=== PATIENT | female | born 1980 | race Caucasian/White ===

== ENCOUNTER 2017-07-01 07:35 | Emergency (ER) | payer BC, MEDICAID ==
[2017-07-01] MEDS: FAMOTIDINE 20 MG INJ IV (08:29)
[2017-07-01] MEDS: morphine 4 MG/ML VIAL IV (08:29)
[2017-07-01] MEDS: ONDANSETRON 4 MG INJ IV (08:29)
[2017-07-01 08:54] LABS: ADD MAN DIFF? NO
[2017-07-01 08:56] LABS: ABNORMAL IP MESSAGE 1; BASOPHILS % 0.2 % (0.0-2.0); HEMATOCRIT 41.6 % (37.0-47.0); HEMOGLOBIN 14.6 g/dl (12.0-16.0); LYMPHOCYTES % 7.8 % (15.0-51.0); MEAN CORPUSCULAR HEMOGLOBIN 29.9 pg (29.0-33.0); MEAN CORPUSCULAR HGB CONC 35.1 g/dl (32.0-37.0); MEAN CORPUSCULAR VOLUME 85.1 fl (82.0-101.0); MEAN PLATELET VOLUME 13.7 fl (7.4-10.4); MONOCYTE # 0.2 10^3/ul (0.3-0.9); MONOCYTES % 1.9 % (0.0-11.0); NEUTROPHILS % 89.6 % (39.0-77.0); PLATELET COUNT 218 10^3/UL (140-415); RED BLOOD COUNT 4.89 10^6/ul (4.20-5.40); RED CELL DISTRIBUTION WIDTH 12.2 % (11.5-14.5)
[2017-07-01 08:56] LABS: WHITE BLOOD COUNT 12.3 10^3/ul (4.8-10.8)
[2017-07-01 09:00] LABS: ADD UMIC NO; UR ASCORBIC ACID NEGATIVE (NEGATIVE); UR BILIRUBIN (Dip) NEGATIVE (NEGATIVE); UR BLOOD (Dip) NEGATIVE (NEGATIVE); UR CLARITY CLEAR (CLEAR); UR COLOR STRAW (YELLOW); UR GLUCOSE (Dip) 3+ mg/dL (NEGATIVE); UR KETONES (Dip) 1+ mg/dL (NEGATIVE); UR LEUKOCYTE ESTERASE (Dip) NEGATIVE Leu/ul (NEGATIVE); UR NITRITE (Dip) NEGATIVE (NEGATIVE); UR SPECIFIC GRAVITY (Dip) 1.035 (1.003-1.030); UR TOTAL PROTEIN (Dip) NEGATIVE (NEGATIVE); UR UROBILINOGEN (Dip) NEGATIVE (NEGATIVE)
[2017-07-01 09:03] LABS: POSITIVE DIFF @See below
[2017-07-01 09:14] LABS: ALANINE AMINOTRANSFERASE 62 IU/L (13-69); ALBUMIN 4.6 g/dl (3.3-4.9); ALBUMIN/GLOBULIN RATIO 1.43; ALKALINE PHOSPHATASE 91 IU/L (42-121); ANION GAP 19 (8-16); ASPARTATE AMINO TRANSFERASE 23 IU/L (15-46); BILIRUBIN,INDIRECT 0.4 mg/dl (0-1.1); BILIRUBIN,TOTAL 0.4 mg/dl (0.2-1.3); BLOOD UREA NITROGEN 13 mg/dl (7-20); CARBON DIOXIDE 25 mmol/L (21-31); CHLORIDE 102 mmol/L (97-110); CREATININE 0.46 mg/dl (0.44-1.00); GLUCOSE 354 mg/dl (70-220); LIPASE 91 U/L (23-300); POTASSIUM 3.7 mmol/L (3.5-5.1); SODIUM 142 mmol/L (135-144); TOTAL PROTEIN 7.8 g/dl (6.1-8.1)
[2017-07-01] MEDS: SOD CHLORIDE 0.9% 1,000 ML IV (09:18)
[2017-07-01] MEDS: KETOROLAC 30 MG INJ IV (09:42)
== END 2017-07-01 12:05 | disposition home or self-care (01) ==
LOC: FTE 07:35
DX: K80.20 Calculus of gallbladder without cholecystitis without obstruction (principal); E13.8 Other specified diabetes mellitus with unspecified complications
CPT/HCPCS: 36415; 76705; 80053; 81003; 81025; 82962; 83690; 85025; 96374; 96375; 99285-25

== ENCOUNTER 2018-03-25 11:54 | Inpatient (IN) | payer BC ==
[2018-03-25 13:10] LABS: ADD MAN DIFF? NO
[2018-03-25 13:12] LABS: ABNORMAL IP MESSAGE 1; BASOPHILS % 0.3 % (0.0-2.0); EOSINOPHILS % 0.2 % (0.0-7.0); HEMATOCRIT 36.5 % (37.0-47.0); HEMOGLOBIN 12.1 g/dl (12.0-16.0); LYMPHOCYTES # 1.1 10^3/ul (0.8-2.9); LYMPHOCYTES % 18.6 % (15.0-51.0); MEAN CORPUSCULAR HEMOGLOBIN 29.1 pg (29.0-33.0); MEAN CORPUSCULAR HGB CONC 33.2 g/dl (32.0-37.0); MEAN CORPUSCULAR VOLUME 87.7 fl (82.0-101.0); MONOCYTE # 0.3 10^3/ul (0.3-0.9); MONOCYTES % 4.2 % (0.0-11.0); NEUTROPHIL # 4.7 10^3/ul (1.6-7.5); NEUTROPHILS % 76.5 % (39.0-77.0); PLATELET COUNT 99 10^3/UL (140-415); RED BLOOD COUNT 4.16 10^6/ul (4.20-5.40); RED CELL DISTRIBUTION WIDTH 13.5 % (11.5-14.5)
[2018-03-25 13:12] LABS: WHITE BLOOD COUNT 6.1 10^3/ul (4.8-10.8)
[2018-03-25 13:13] LABS: ADD UMIC YES; UR ASCORBIC ACID NEGATIVE (NEGATIVE); UR BILIRUBIN (Dip) NEGATIVE (NEGATIVE); UR BLOOD (Dip) 3+ mg/dL (NEGATIVE); UR CLARITY SLIGHTLY CLOUDY (CLEAR); UR COLOR AMBER (YELLOW); UR GLUCOSE (Dip) 1+ mg/dL (NEGATIVE); UR KETONES (Dip) TRACE mg/dL (NEGATIVE); UR LEUKOCYTE ESTERASE (Dip) 2+ Leu/ul (NEGATIVE); UR MUCUS FEW /HPF (NONE SEEN); UR NITRITE (Dip) NEGATIVE (NEGATIVE); UR RBC 4 /HPF (0-5); UR SPECIFIC GRAVITY (Dip) 1.023 (1.003-1.030); UR SQUAMOUS EPITHELIAL CELL MODERATE /HPF (FEW); UR TOTAL PROTEIN (Dip) 1+ mg/dl (NEGATIVE); UR UROBILINOGEN (Dip) 2+ mg/dL (NEGATIVE); UR WBC 17 /HPF (0-5)
[2018-03-25 13:21] LABS: POSITIVE DIFF @See below
[2018-03-25] MEDS: LACTATED RINGER'S 1,000 ML IV ×2 (13:59→15:26)
[2018-03-25] MEDS ORDERED: CEFTRIAXONE 1 GM INJ IVPB (15:00)
[2018-03-25] MEDS ORDERED: MAGNESIUM SULFATE 4 GM/100 ML 100 ML (15:04)
[2018-03-25] MEDS ORDERED: MAGNESIUM SULFATE 20 GM/500 ML 500 ML IV (15:04)
[2018-03-25] MEDS: MAGNESIUM SULFATE 4 GM/100 ML 100 ML IV (15:51)
[2018-03-25] MEDS ORDERED: OXYTOCIN 30 UNITS/LR 500 ML IV ×2 (16:02→17:34)
[2018-03-25] MEDS ORDERED: KETOROLAC 30 MG INJ (16:03)
[2018-03-25] MEDS ORDERED: ONDANSETRON 4 MG INJ (16:03)
[2018-03-25] MEDS ORDERED: METOCLOPRAMIDE 10 MG INJ (16:03)
[2018-03-25] MEDS ORDERED: morphine SULFATE/PF (10 MG/10 ML) INJ (16:03)
[2018-03-25] MEDS: BETAMET NA PHOS/AC(6 MG/ML) 2 ML INJ SYG IM (16:11)
[2018-03-25] MEDS: MAGNESIUM SULFATE 20 GM/500 ML 500 ML IV (16:14)
[2018-03-25] MEDS ORDERED: LIDOCAINE 2% (SDV) 5 ML INJ (16:30)
[2018-03-25] MEDS ORDERED: FENTAnyl 50 MCG/ML VIAL (16:34)
[2018-03-25] MEDS: ACCU-CHEK XX ×2 (17:15→22:47)
[2018-03-25] MEDS: CEFTRIAXONE 1 GM/NS 50 ML IVPB (17:17)
[2018-03-25] MEDS: metFORMIN 850 MG TAB GTB (17:17)
[2018-03-25] MEDS ORDERED: NPH, HUMAN INSULIN ISOPHANE 3ML VIAL SC (21:00)
[2018-03-25] MEDS: NITROFURANTOIN (SR) 100 MG CAP PO (21:35)
[2018-03-25] MEDS: NPH, HUMAN INSULIN ISOPHANE 3ML VIAL SC (23:05)
[2018-03-26] MEDS: LACTATED RINGER'S 1,000 ML IV ×4 (00:40→14:36)
[2018-03-26] MEDS: ACETAMINOPHEN 325 MG TAB PO ×3 (02:06→12:31)
[2018-03-26] MEDS: MAGNESIUM SULFATE 20 GM/500 ML 500 ML IV ×2 (04:03→14:29)
[2018-03-26] MEDS: ACCU-CHEK XX ×2 (08:50→11:00)
[2018-03-26] MEDS: NITROFURANTOIN (SR) 100 MG CAP PO (08:55)
[2018-03-26] MEDS: FERROUS SULFATE (EC) 325 MG TAB PO (08:56)
[2018-03-26] MEDS: PRENATAL VITAMIN PO (08:56)
[2018-03-26] MEDS: metFORMIN 850 MG TAB GTB (08:56)
[2018-03-26] MEDS ORDERED: AMPICILLIN 2 GM/NS (PMX) 100 ML (11:44)
[2018-03-26] MEDS: BETAMET NA PHOS/AC(6 MG/ML) 2 ML INJ SYG IM (12:11)
[2018-03-26] MEDS ORDERED: GLUCOSE GEL 15 GRAM TUBE BUCCAL (12:30)
[2018-03-26] MEDS ORDERED: GLUCOSE GEL 15 GRAM TUBE PO ×2 (12:30)
[2018-03-26] MEDS ORDERED: DEXTROSE 50% 50 ML SYRINGE IV ×2 (12:30)
[2018-03-26] MEDS ORDERED: GLUCAGON 1 MG INJ IM (12:30)
[2018-03-26] MEDS ORDERED: FENTAnyl 2MCG/ML-ROPIV 0.2% 100 ML (12:38)
[2018-03-26] MEDS ORDERED: NALOXONE (0.4 MG/ML) INJ IV (13:00)
[2018-03-26] MEDS ORDERED: ACCU-CHEK XX (13:30)
[2018-03-26] MEDS: ONDANSETRON 4 MG INJ IV (13:37)
[2018-03-26] MEDS: INSULIN ASPART [NOVOLOG] 3 ML PEN SC (15:02)
[2018-03-26] MEDS ORDERED: AMPICILLIN 1 GM/NS (PMX) 50 ML (17:35)
[2018-03-26] MEDS: AMPICILLIN 2 GM/NS (PMX) 100 ML IV (17:55)
[2018-03-26] MEDS: AMPICILLIN 1 GM/NS (PMX) 50 ML IV ×2 (17:56→22:22)
[2018-03-26] MEDS: FENTAnyl 2MCG/ML-ROPIV 0.2% 100 ML BAG EPI (22:14)
[2018-03-26] MEDS ORDERED: OXYTOCIN 30 UNITS/LR 500 ML IV (23:00)
[2018-03-26] MEDS ORDERED: LIDOCAINE 1% (MPF) 30 ML INJ INJ (23:00)
[2018-03-26] MEDS ORDERED: MISOPROSTOL 200 MCG TAB PR (23:00)
[2018-03-26] MEDS ORDERED: METHYLERGONOVINE 0.2 MG INJ IM (23:00)
[2018-03-26] MEDS ORDERED: CARBOPROST 250 MCG INJ IM (23:00)
[2018-03-27] MEDS: DIPHENHYDRAMINE 50 MG INJ IV (00:40)
[2018-03-27] MEDS: MAGNESIUM SULFATE 20 GM/500 ML 500 ML IV (00:46)
[2018-03-27] MEDS: AMPICILLIN 1 GM/NS (PMX) 50 ML IV ×3 (02:07→10:10)
[2018-03-27] MEDS: LACTATED RINGER'S 1,000 ML IV ×4 (04:09→16:11)
[2018-03-27 04:18] LABS: MAGNESIUM 6.9 mg/dl (1.7-2.5)
[2018-03-27] MEDS: FENTAnyl 2MCG/ML-ROPIV 0.2% 100 ML BAG EPI ×2 (06:08→11:52)
[2018-03-27] MEDS: CALCIUM CARBONATE 500 MG CHEW TAB PO ×2 (09:12→12:01)
[2018-03-27] MEDS: OXYTOCIN 30 UNITS/LR 500 ML IV ×4 (13:18→18:51)
[2018-03-27] MEDS ORDERED: SENNA/DOCUSATE NA (8.6MG/50MG) TAB PO (13:30)
[2018-03-27] MEDS ORDERED: MISOPROSTOL 200 MCG TAB PR (13:30)
[2018-03-27] MEDS ORDERED: OXYTOCIN 30 UNITS/LR 500 ML IV (13:30)
[2018-03-27] MEDS ORDERED: WITCH HAZEL/GLYCERIN PAD PR (13:30)
[2018-03-27] MEDS ORDERED: ONDANSETRON 4 MG INJ IV (13:30)
[2018-03-27] MEDS ORDERED: CARBOPROST 250 MCG INJ IM (13:30)
[2018-03-27] MEDS ORDERED: LANOLIN HPA 1 PKT TOP (13:30)
[2018-03-27] MEDS ORDERED: DIPHENHYDRAMINE 25 MG CAP PO (13:30)
[2018-03-27] MEDS ORDERED: BENZOCAINE 20% 56 ML SPRAY TOP (13:30)
[2018-03-27] MEDS ORDERED: OXYCODONE/ASPIRIN (4.88/325) TAB PO (13:30)
[2018-03-27] MEDS ORDERED: ACETAMINOPHEN 325 MG TAB PO (13:30)
[2018-03-27] MEDS ORDERED: METHYLERGONOVINE 0.2 MG INJ IM (13:30)
[2018-03-27] MEDS ORDERED: NACL 0.9% 3 ML SYG IV (13:30)
[2018-03-27] MEDS: IBUPROFEN 600 MG TAB PO ×3 (13:38→23:30)
[2018-03-27] MEDS: OXYCODONE/ASPIRIN (4.88/325) TAB PO (16:23)
[2018-03-27] MEDS: ACCU-CHEK XX ×3 (18:45→20:05)
[2018-03-27] MEDS: INSULIN ASPART [NOVOLOG] 3 ML PEN SC ×2 (18:58→22:29)
[2018-03-27] MEDS ORDERED: GLUCOSE GEL 15 GRAM TUBE BUCCAL (19:00)
[2018-03-27] MEDS ORDERED: GLUCAGON 1 MG INJ IM (19:00)
[2018-03-27] MEDS ORDERED: GLUCOSE GEL 15 GRAM TUBE PO ×2 (19:00)
[2018-03-27] MEDS ORDERED: DEXTROSE 50% 50 ML SYRINGE IV ×2 (19:00)
[2018-03-27 19:17] LABS: HEMOGLOBIN A1C 7.9 % (0-5.9)
[2018-03-27] MEDS: SENNA/DOCUSATE NA (8.6MG/50MG) TAB PO (22:27)
[2018-03-28] MEDS: IBUPROFEN 600 MG TAB PO ×4 (05:41→23:37)
[2018-03-28] MEDS: ACCU-CHEK XX ×6 (07:30→17:35)
[2018-03-28 08:03] LABS: ADD MAN DIFF? NO
[2018-03-28 08:07] LABS: WHITE BLOOD COUNT 10.7 10^3/ul (4.8-10.8)
[2018-03-28 08:07] LABS: ABNORMAL IP MESSAGE 1; BASOPHILS % 0.1 % (0.0-2.0); HEMATOCRIT 32.7 % (37.0-47.0); HEMOGLOBIN 10.6 g/dl (12.0-16.0); LYMPHOCYTES # 1.4 10^3/ul (0.8-2.9); MEAN CORPUSCULAR HEMOGLOBIN 28.3 pg (29.0-33.0); MEAN CORPUSCULAR HGB CONC 32.4 g/dl (32.0-37.0); MEAN CORPUSCULAR VOLUME 87.4 fl (82.0-101.0); MONOCYTE # 0.6 10^3/ul (0.3-0.9); MONOCYTES % 5.2 % (0.0-11.0); NEUTROPHIL # 8.7 10^3/ul (1.6-7.5); NEUTROPHILS % 81.3 % (39.0-77.0); PLATELET COUNT 102 10^3/UL (140-415); RED BLOOD COUNT 3.74 10^6/ul (4.20-5.40); RED CELL DISTRIBUTION WIDTH 14.2 % (11.5-14.5)
[2018-03-28 08:13] LABS: POSITIVE DIFF @See below
[2018-03-28] MEDS: SENNA/DOCUSATE NA (8.6MG/50MG) TAB PO ×2 (08:50→21:17)
[2018-03-28] MEDS: INFLUENZA VIRUS VACCINE 0.5 ML (DISPENSING) IM* (08:50)
[2018-03-28] MEDS: metFORMIN (XR) 500 MG TAB PO ×2 (09:00→21:18)
[2018-03-28] MEDS: INSULIN ASPART [NOVOLOG] 3 ML PEN SC ×3 (12:51→21:20)
[2018-03-28 22:26] LABS: RAPID PLASMA REAGIN NONREACTIVE (NR)
[2018-03-29] MEDS: IBUPROFEN 600 MG TAB PO ×2 (05:31→11:13)
[2018-03-29] MEDS: SENNA/DOCUSATE NA (8.6MG/50MG) TAB PO (08:49)
[2018-03-29] MEDS: metFORMIN (XR) 500 MG TAB PO (08:49)
== END 2018-03-29 17:10 | disposition home or self-care (01) | DRG 807 ==
LOC: OBT 11:54 → L-D 03-26 10:45 → PP1 03-27 14:47 → L-D 11:54 → OBT 14:04 → L-D 14:00 → PP1 21:24
PROC: 10E0XZZ Delivery of Products of Conception, External Approach (ICD-10-PCS; principal; 2018-03-26)
PROC: 3E033VJ Introduction of Other Hormone into Peripheral Vein, Percutaneous Approach (ICD-10-PCS; 2018-03-26)
DX: O60.14X0 Preterm labor third trimester with preterm delivery third trimester, not applicable or unspecified (principal); Z37.0 Single live birth; O24.429 Gestational diabetes mellitus in childbirth, unspecified control; Z3A.33 33 weeks gestation of pregnancy
CPT/HCPCS: 62319; 76815; 76817; 76818; 81001; 82962; 83036; 83735; 85025; 86592; 86900; 86901; 87086; 88307; 90686; 99464

== ENCOUNTER 2018-06-01 04:08 | Emergency (ER) | payer BC ==
[2018-06-01] MEDS: ONDANSETRON 4 MG INJ IV ×2 (05:00→07:31)
[2018-06-01] MEDS: SOD CHLORIDE 0.9% 1,000 ML IV ×2 (05:00→07:32)
[2018-06-01] MEDS: morphine 4 MG/ML VIAL IV (05:00)
[2018-06-01 05:22] LABS: ADD MAN DIFF? NO
[2018-06-01 05:24] LABS: WHITE BLOOD COUNT 7.8 10^3/ul (4.8-10.8)
[2018-06-01 05:24] LABS: ABNORMAL IP MESSAGE 1; BASOPHILS % 0.4 % (0.0-2.0); EOSINOPHILS # 0.1 10^3/ul (0.0-0.5); EOSINOPHILS % 0.6 % (0.0-7.0); HEMATOCRIT 36.9 % (37.0-47.0); HEMOGLOBIN 12.1 g/dl (12.0-16.0); LYMPHOCYTES # 1.5 10^3/ul (0.8-2.9); LYMPHOCYTES % 18.9 % (15.0-51.0); MEAN CORPUSCULAR HEMOGLOBIN 28.3 pg (29.0-33.0); MEAN CORPUSCULAR HGB CONC 32.8 g/dl (32.0-37.0); MEAN CORPUSCULAR VOLUME 86.2 fl (82.0-101.0); MEAN PLATELET VOLUME 13.6 fl (7.4-10.4); MONOCYTE # 0.4 10^3/ul (0.3-0.9); MONOCYTES % 5.7 % (0.0-11.0); NEUTROPHIL # 5.8 10^3/ul (1.6-7.5); NEUTROPHILS % 74.1 % (39.0-77.0); PLATELET COUNT 219 10^3/UL (140-415); RED BLOOD COUNT 4.28 10^6/ul (4.20-5.40); RED CELL DISTRIBUTION WIDTH 15.2 % (11.5-14.5)
[2018-06-01 05:32] LABS: POSITIVE DIFF @See below
[2018-06-01 05:45] LABS: ADD UMIC NO; UR ASCORBIC ACID NEGATIVE (NEGATIVE); UR BILIRUBIN (Dip) NEGATIVE (NEGATIVE); UR BLOOD (Dip) NEGATIVE (NEGATIVE); UR CLARITY CLEAR (CLEAR); UR COLOR YELLOW (YELLOW); UR GLUCOSE (Dip) 3+ mg/dL (NEGATIVE); UR KETONES (Dip) NEGATIVE (NEGATIVE); UR LEUKOCYTE ESTERASE (Dip) NEGATIVE Leu/ul (NEGATIVE); UR NITRITE (Dip) NEGATIVE (NEGATIVE); UR SPECIFIC GRAVITY (Dip) 1.036 (1.003-1.030); UR TOTAL PROTEIN (Dip) NEGATIVE (NEGATIVE); UR UROBILINOGEN (Dip) NEGATIVE (NEGATIVE)
[2018-06-01 05:54] LABS: ALANINE AMINOTRANSFERASE 48 IU/L (13-69); ALBUMIN/GLOBULIN RATIO 1.37; ALKALINE PHOSPHATASE 72 IU/L (42-121); AMYLASE 61 U/L (11-123); ANION GAP 8 (5-13); ASPARTATE AMINO TRANSFERASE 26 IU/L (15-46); BILIRUBIN,INDIRECT 0.2 mg/dl (0-1.1); BILIRUBIN,TOTAL 0.2 mg/dl (0.2-1.3); BLOOD UREA NITROGEN 13 mg/dl (7-20); CALCIUM 9.6 mg/dl (8.4-10.2); CARBON DIOXIDE 25 mmol/L (21-31); CHLORIDE 103 mmol/L (97-110); CREATININE 0.38 mg/dl (0.44-1.00); Estimated GFR > 60 mL/min (>60); GLUCOSE 307 mg/dl (70-220); LIPASE 136 U/L (23-300); POTASSIUM 4.2 mmol/L (3.5-5.1); SODIUM 136 mmol/L (135-144); TOTAL PROTEIN 6.9 g/dl (6.1-8.1)
[2018-06-01] MEDS: KETOROLAC 30 MG INJ IV (07:32)
[2018-06-01] MEDS: HYDROmorphONE 1 MG/ML SYG IV (07:33)
== END 2018-06-01 08:36 | disposition home or self-care (01) ==
LOC: FTE 04:08
DX: K80.20 Calculus of gallbladder without cholecystitis without obstruction (principal); E11.65 Type 2 diabetes mellitus with hyperglycemia; Z79.84 Long term (current) use of oral hypoglycemic drugs
CPT/HCPCS: 71046; 76705; 80053; 81003; 82150; 82962; 83690; 84703; 85025; 96361; 96374; 96375; 96376; 99285-25

== ENCOUNTER 2018-07-18 18:31 | Emergency (ER) | payer BC ==
[2018-07-18] MEDS: ONDANSETRON 4 MG INJ IV ×2 (21:20→23:37)
[2018-07-18] MEDS: KETOROLAC 30 MG INJ IV (21:20)
[2018-07-18] MEDS: HYDROmorphONE 1 MG/ML SYG IV (21:21)
[2018-07-18] MEDS: SOD CHLORIDE 0.9% 1,000 ML IV (21:21)
[2018-07-18 21:32] LABS: ADD MAN DIFF? NO
[2018-07-18 21:39] LABS: ABNORMAL IP MESSAGE 1; BASOPHILS % 0.2 % (0.0-2.0); HEMATOCRIT 42.1 % (37.0-47.0); HEMOGLOBIN 14.4 g/dl (12.0-16.0); LYMPHOCYTES % 7.5 % (15.0-51.0); MEAN CORPUSCULAR HEMOGLOBIN 29.8 pg (29.0-33.0); MEAN CORPUSCULAR HGB CONC 34.2 g/dl (32.0-37.0); MEAN CORPUSCULAR VOLUME 87.2 fl (82.0-101.0); MEAN PLATELET VOLUME 14.4 fl (7.4-10.4); MONOCYTE # 0.5 10^3/ul (0.3-0.9); NEUTROPHIL # 11.4 10^3/ul (1.6-7.5); NEUTROPHILS % 87.7 % (39.0-77.0); PLATELET COUNT 262 10^3/UL (140-415); POSITIVE DIFF @See below; RED BLOOD COUNT 4.83 10^6/ul (4.20-5.40); RED CELL DISTRIBUTION WIDTH 12.9 % (11.5-14.5)
[2018-07-18 21:55] LABS: ALANINE AMINOTRANSFERASE 29 IU/L (13-69); ALBUMIN 4.6 g/dl (3.3-4.9); ALBUMIN/GLOBULIN RATIO 1.27; ALKALINE PHOSPHATASE 75 IU/L (42-121); AMYLASE 60 U/L (11-123); ANION GAP 12 (5-13); ASPARTATE AMINO TRANSFERASE 21 IU/L (15-46); BLOOD UREA NITROGEN 9 mg/dl (7-20); CALCIUM 9.7 mg/dl (8.4-10.2); CARBON DIOXIDE 24 mmol/L (21-31); CHLORIDE 99 mmol/L (97-110); CREATININE 0.34 mg/dl (0.44-1.00); Estimated GFR > 60 mL/min (>60); GLUCOSE 257 mg/dl (70-220); LIPASE 49 U/L (23-300); POTASSIUM 4.6 mmol/L (3.5-5.1); SODIUM 135 mmol/L (135-144); TOTAL PROTEIN 8.2 g/dl (6.1-8.1)
[2018-07-18 22:06] LABS: TROPONIN-I < 0.012 ng/ml (0.000-0.120)
[2018-07-18 22:11] LABS: ADD UMIC NO; UR ASCORBIC ACID NEGATIVE (NEGATIVE); UR BILIRUBIN (Dip) NEGATIVE (NEGATIVE); UR BLOOD (Dip) NEGATIVE (NEGATIVE); UR CLARITY SLIGHTLY CLOUDY (CLEAR); UR COLOR YELLOW (YELLOW); UR GLUCOSE (Dip) 3+ mg/dL (NEGATIVE); UR KETONES (Dip) 2+ mg/dL (NEGATIVE); UR LEUKOCYTE ESTERASE (Dip) NEGATIVE Leu/ul (NEGATIVE); UR MUCUS FEW /HPF (NONE SEEN); UR NITRITE (Dip) NEGATIVE (NEGATIVE); UR RBC 2 /HPF (0-5); UR SPECIFIC GRAVITY (Dip) 1.038 (1.003-1.030); UR SQUAMOUS EPITHELIAL CELL FEW /HPF (FEW); UR TOTAL PROTEIN (Dip) NEGATIVE (NEGATIVE); UR UROBILINOGEN (Dip) NEGATIVE (NEGATIVE); UR WBC 7 /HPF (0-5)
[2018-07-18] MEDS ORDERED: PIPER-TAZO 3.375 GM IV (PMX) 100 ML IVPB (23:30)
[2018-07-18] MEDS ORDERED: SOD CHLORIDE 0.9% 1,000 ML IV (23:30)
[2018-07-18] MEDS: morphine 4 MG/ML VIAL IV (23:37)
== END 2018-07-19 00:05 | disposition home or self-care (01) ==
LOC: E/R 07-19 00:05
DX: K80.12 Calculus of gallbladder with acute and chronic cholecystitis without obstruction (principal); E11.65 Type 2 diabetes mellitus with hyperglycemia; Z79.84 Long term (current) use of oral hypoglycemic drugs
CPT/HCPCS: 36415; 76705; 80053; 81001; 81003; 82150; 82962; 83690; 84484; 84703; 85025; 96374; 96375; 96376; 99285-25

== ENCOUNTER 2018-07-19 03:18 | Inpatient (IN) | payer BC ==
[2018-07-19] MEDS: HYDROmorphONE 0.5 MG/0.5 ML SYG IV (04:04)
[2018-07-19] MEDS: ONDANSETRON 4 MG INJ IV ×2 (04:04→06:55)
[2018-07-19] MEDS: PIPER-TAZO 3.375 GM IV (PMX) 100 ML IVPB ×3 (04:04→17:20)
[2018-07-19] MEDS: SOD CHLORIDE 0.9% 1,000 ML IV ×3 (04:04→17:23)
[2018-07-19] MEDS: morphine 4 MG/ML VIAL IV (06:56)
[2018-07-19 07:20] LABS: ADD MAN DIFF? NO
[2018-07-19 07:22] LABS: ABNORMAL IP MESSAGE 1; BASOPHILS % 0.2 % (0.0-2.0); HEMATOCRIT 39.5 % (37.0-47.0); HEMOGLOBIN 13.1 g/dl (12.0-16.0); LYMPHOCYTES # 0.9 10^3/ul (0.8-2.9); LYMPHOCYTES % 6.9 % (15.0-51.0); MEAN CORPUSCULAR HEMOGLOBIN 29.7 pg (29.0-33.0); MEAN CORPUSCULAR HGB CONC 33.2 g/dl (32.0-37.0); MEAN CORPUSCULAR VOLUME 89.6 fl (82.0-101.0); MEAN PLATELET VOLUME 13.6 fl (7.4-10.4); MONOCYTE # 0.8 10^3/ul (0.3-0.9); NEUTROPHIL # 11.4 10^3/ul (1.6-7.5); NEUTROPHILS % 86.3 % (39.0-77.0); PLATELET COUNT 196 10^3/UL (140-415); RED BLOOD COUNT 4.41 10^6/ul (4.20-5.40); RED CELL DISTRIBUTION WIDTH 12.7 % (11.5-14.5)
[2018-07-19 07:22] LABS: WHITE BLOOD COUNT 13.2 10^3/ul (4.8-10.8)
[2018-07-19 07:26] LABS: POSITIVE DIFF @See below
[2018-07-19 07:40] LABS: ALANINE AMINOTRANSFERASE 29 IU/L (13-69); ALBUMIN 3.7 g/dl (3.3-4.9); ALBUMIN/GLOBULIN RATIO 1.23; ALKALINE PHOSPHATASE 63 IU/L (42-121); ANION GAP 13 (5-13); ASPARTATE AMINO TRANSFERASE 18 IU/L (15-46); BILIRUBIN,INDIRECT 0.9 mg/dl (0-1.1); BILIRUBIN,TOTAL 0.9 mg/dl (0.2-1.3); BLOOD UREA NITROGEN 7 mg/dl (7-20); CALCIUM 8.7 mg/dl (8.4-10.2); CARBON DIOXIDE 20 mmol/L (21-31); CHLORIDE 104 mmol/L (97-110); CREATININE 0.28 mg/dl (0.44-1.00); Estimated GFR > 60 mL/min (>60); GLUCOSE 275 mg/dl (70-220); POTASSIUM 3.7 mmol/L (3.5-5.1); SODIUM 137 mmol/L (135-144); TOTAL PROTEIN 6.7 g/dl (6.1-8.1)
[2018-07-19 07:41] LABS: INR 1.04; PARTIAL THROMBOPLASTIN TIME 27.5 Sec (23.0-35.0); PROTIME 13.7 Sec (11.9-14.9); PT RATIO 1.1
[2018-07-19] MEDS ORDERED: BISACODYL 10 MG SUPP PR (09:00)
[2018-07-19] MEDS ORDERED: ACETAMINOPHEN 650 MG SUPP PR (09:00)
[2018-07-19] MEDS ORDERED: NACL 0.9% 3 ML SYG IV (09:00)
[2018-07-19] MEDS ORDERED: MAGNESIUM HYDROXIDE 30ML CUP PO (09:00)
[2018-07-19] MEDS ORDERED: HYDROmorphONE 0.5 MG/0.5 ML SYG IV (09:00)
[2018-07-19] MEDS: HYDROmorphONE 1 MG/ML SYG IV ×5 (09:20→20:17)
[2018-07-19] MEDS: FAMOTIDINE 20 MG INJ IV ×2 (09:20→20:17)
[2018-07-19] MEDS ORDERED: GLUCAGON 1 MG INJ IM (09:30)
[2018-07-19] MEDS ORDERED: GLUCOSE GEL 15 GRAM TUBE PO ×2 (09:30)
[2018-07-19] MEDS ORDERED: DEXTROSE 50% 50 ML SYRINGE IV ×2 (09:30)
[2018-07-19] MEDS ORDERED: GLUCOSE GEL 15 GRAM TUBE BUCCAL (09:30)
[2018-07-19] MEDS ORDERED: INSULIN ASPART [NOVOLOG] 3 ML PEN SC (12:00)
[2018-07-19] MEDS: INSULIN ASPART [NOVOLOG] 3 ML PEN SC ×3 (12:24→20:28)
[2018-07-19] MEDS: ACETAMINOPHEN 325 MG TAB PO (20:18)
[2018-07-20] MEDS: HYDROmorphONE 1 MG/ML SYG IV ×8 (00:13→22:27)
[2018-07-20] MEDS: PIPER-TAZO 3.375 GM IV (PMX) 100 ML IVPB ×5 (00:14→23:46)
[2018-07-20] MEDS: SOD CHLORIDE 0.9% 1,000 ML IV ×3 (00:14→17:25)
[2018-07-20] MEDS: INSULIN ASPART [NOVOLOG] 3 ML PEN SC ×6 (01:10→20:17)
[2018-07-20] MEDS ORDERED: ACCU-CHEK XX ×2 (02:00)
[2018-07-20] MEDS: ACETAMINOPHEN 325 MG TAB PO ×3 (05:24→20:55)
[2018-07-20 06:39] LABS: ADD MAN DIFF? NO
[2018-07-20 06:44] LABS: ABNORMAL IP MESSAGE 1; BASOPHILS % 0.1 % (0.0-2.0); EOSINOPHILS % 0.2 % (0.0-7.0); HEMATOCRIT 39.6 % (37.0-47.0); HEMOGLOBIN 12.8 g/dl (12.0-16.0); LYMPHOCYTES # 1.4 10^3/ul (0.8-2.9); LYMPHOCYTES % 11.5 % (15.0-51.0); MEAN CORPUSCULAR HEMOGLOBIN 29.4 pg (29.0-33.0); MEAN CORPUSCULAR HGB CONC 32.3 g/dl (32.0-37.0); MEAN CORPUSCULAR VOLUME 90.8 fl (82.0-101.0); MEAN PLATELET VOLUME 13.8 fl (7.4-10.4); MONOCYTE # 1.1 10^3/ul (0.3-0.9); MONOCYTES % 8.8 % (0.0-11.0); NEUTROPHIL # 9.5 10^3/ul (1.6-7.5); NEUTROPHILS % 79.1 % (39.0-77.0); PLATELET COUNT 181 10^3/UL (140-415); RED BLOOD COUNT 4.36 10^6/ul (4.20-5.40)
[2018-07-20 06:53] LABS: POSITIVE DIFF @See below
[2018-07-20 07:05] LABS: CHOL/HDL RATIO 3.2 RATIO; HDL CHOLESTEROL 36 mg/dl (34-82); LDL CHOLESTEROL,CALCULATED 62 mg/dl; TRIGLYCERIDES 100 mg/dl (0-149)
[2018-07-20 07:05] LABS: CHOLESTEROL 118 mg/dl (100-200)
[2018-07-20 07:07] LABS: ALANINE AMINOTRANSFERASE 31 IU/L (13-69); ALBUMIN 3.3 g/dl (3.3-4.9); ALKALINE PHOSPHATASE 53 IU/L (42-121); ANION GAP 10 (5-13); ASPARTATE AMINO TRANSFERASE 25 IU/L (15-46); BILIRUBIN,INDIRECT 0.9 mg/dl (0-1.1); BILIRUBIN,TOTAL 0.9 mg/dl (0.2-1.3); BLOOD UREA NITROGEN 9 mg/dl (7-20); CALCIUM 8.4 mg/dl (8.4-10.2); CARBON DIOXIDE 23 mmol/L (21-31); CHLORIDE 104 mmol/L (97-110); CREATININE 0.33 mg/dl (0.44-1.00); Estimated GFR > 60 mL/min (>60); GLUCOSE 152 mg/dl (70-220); MAGNESIUM 1.9 mg/dl (1.7-2.5); PHOSPHORUS 1.9 mg/dl (2.5-4.9); POTASSIUM 3.3 mmol/L (3.5-5.1); SODIUM 137 mmol/L (135-144); TOTAL PROTEIN 6.3 g/dl (6.1-8.1)
[2018-07-20 07:14] LABS: HEMOGLOBIN A1C 10.2 % (0-5.9)
[2018-07-20] MEDS: FAMOTIDINE 20 MG INJ IV ×2 (08:56→20:16)
[2018-07-20] MEDS: POTASSIUM CHLORIDE (SR) 20 MEQ TAB PO (08:57)
[2018-07-20 10:14] LABS: LIPASE 29 U/L (23-300)
[2018-07-20 10:15] LABS: AMYLASE < 30 U/L (11-123)
[2018-07-20] MEDS ORDERED: HYDROmorphONE 0.5 MG/0.5 ML SYG IV (13:00)
[2018-07-21] MEDS: INSULIN ASPART [NOVOLOG] 3 ML PEN SC ×6 (01:00→20:11)
[2018-07-21] MEDS: HYDROmorphONE 1 MG/ML SYG IV ×6 (01:06→12:35)
[2018-07-21] MEDS: SOD CHLORIDE 0.9% 1,000 ML IV ×3 (02:18→11:06)
[2018-07-21] MEDS: PIPER-TAZO 3.375 GM IV (PMX) 100 ML IVPB ×3 (05:22→17:20)
[2018-07-21] MEDS: FAMOTIDINE 20 MG INJ IV ×2 (08:20→20:00)
[2018-07-21] MEDS: ONDANSETRON 4 MG INJ IV (08:48)
[2018-07-21] MEDS ORDERED: BUPIVACAINE 0.5%/EPI (SDV) 30 ML INJ (12:49)
[2018-07-21] MEDS ORDERED: LIDOCAINE 1% (MPF) 30 ML INJ (12:49)
[2018-07-21] MEDS ORDERED: ROPIVACAINE 0.5 % 30 ML VIAL (13:17)
[2018-07-21] MEDS ORDERED: LIDOCAINE 2% (SDV) 5 ML INJ (13:17)
[2018-07-21] MEDS ORDERED: MIDAZOLAM 1 MG/ML 2 ML INJ (13:17)
[2018-07-21] MEDS ORDERED: SUCCINYLCHOLINE CHLORIDE 100 MG/5 ML SYG IV (13:17)
[2018-07-21] MEDS ORDERED: PROPOFOL 20 ML (13:17)
[2018-07-21] MEDS ORDERED: ROCURONIUM 50 MG INJ (13:17)
[2018-07-21] MEDS ORDERED: FENTAnyl 50 MCG/ML VIAL (13:17)
[2018-07-21] MEDS ORDERED: DIPHENHYDRAMINE 50 MG INJ IV (13:30)
[2018-07-21] MEDS ORDERED: ONDANSETRON 4 MG INJ IV (13:30)
[2018-07-21] MEDS ORDERED: PROCHLORPERAZINE 10 MG INJ IV (13:30)
[2018-07-21] MEDS ORDERED: FENTAnyl 50 MCG/ML VIAL IV ×2 (13:30)
[2018-07-21] MEDS ORDERED: HYDROmorphONE 1 MG/5 ML IV SYRINGE IV ×3 (13:30)
[2018-07-21] MEDS ORDERED: MEPERIDINE 25 MG INJ IV (13:30)
[2018-07-21] MEDS ORDERED: ONDANSETRON 4 MG INJ (13:58)
[2018-07-21] MEDS ORDERED: FAMOTIDINE 20 MG INJ (13:58)
[2018-07-21] MEDS ORDERED: HYDROmorphONE 2 MG/ML SYG (14:35)
[2018-07-21] MEDS: HEMOSTATIC MATRIX/ THROMBIN 1 EA SYG ZFS (15:02)
[2018-07-21] MEDS ORDERED: GLYCOPYRROLATE 0.4 MG INJ (15:22)
[2018-07-21] MEDS ORDERED: NEOSTIGMINE 3 MG/3 ML SYRINGE (15:22)
[2018-07-21] MEDS ORDERED: ACETAMINOPHEN 325 MG TAB PO (16:00)
[2018-07-21] MEDS ORDERED: IBUPROFEN 600 MG TAB PO (16:00)
[2018-07-21] MEDS: FENTAnyl 50 MCG/ML VIAL IV (16:17)
[2018-07-21] MEDS: HYDROmorphONE 0.5 MG/0.5 ML SYG IV ×2 (18:36→22:49)
[2018-07-21] MEDS: KETOROLAC 30 MG INJ IV (19:56)
[2018-07-21] MEDS: DOCUSATE SODIUM 100 MG CAP PO (19:59)
[2018-07-22] MEDS: PIPER-TAZO 3.375 GM IV (PMX) 100 ML IVPB ×4 (00:20→17:35)
[2018-07-22] MEDS: SOD CHLORIDE 0.9% 1,000 ML IV ×3 (01:30→17:30)
[2018-07-22] MEDS: KETOROLAC 30 MG INJ IV ×2 (02:15→09:09)
[2018-07-22] MEDS: HYDROmorphONE 0.5 MG/0.5 ML SYG IV ×4 (02:58→15:32)
[2018-07-22] MEDS ORDERED: ENOXAPARIN 40 MG/0.4 ML SYG SC (05:41)
[2018-07-22] MEDS: ENOXAPARIN 40 MG/0.4 ML SYG SC (06:26)
[2018-07-22] MEDS: FAMOTIDINE 20 MG INJ IV (08:06)
[2018-07-22] MEDS: INSULIN ASPART [NOVOLOG] 3 ML PEN SC ×3 (08:08→17:34)
== END 2018-07-22 18:19 | disposition home or self-care (01) | DRG 419 ==
LOC: PP2 07:31 → E/R 03:18 → PP2 05:12
PROVIDERS: Internal Medicine
PROC: 0FT44ZZ Resection of Gallbladder, Percutaneous Endoscopic Approach (ICD-10-PCS; principal; 2018-07-21 13:27)
DX: K80.12 Calculus of gallbladder with acute and chronic cholecystitis without obstruction (principal); E11.9 Type 2 diabetes mellitus without complications; E66.9 Obesity, unspecified; Z68.32 Body mass index [BMI] 32.0-32.9, adult; Z79.84 Long term (current) use of oral hypoglycemic drugs
CPT/HCPCS: 80053; 80061; 82150; 82962; 83036; 83690; 83735; 84100; 85025; 85610; 85730; 88304; 93005; 96374; 96375; 99285-25